=== PATIENT | female | born 2000 | race Two or more races ===

== ENCOUNTER 2023-12-31 20:16 | Outpatient (CLI) | payer OTHER ==
[2023-12-31 21:07] LABS: Appearance,Urine Cloudy (Clear); Bilirubin,Urine Negative (Negative); Blood,Urine Trace (Negative); Color,Urine Yellow; Glucose,Urine (UA) Negative (Negative); Ketones,Urine Negative (Negative); Leukocyte Esterase,Urine Negative (Negative); Mucus,Urine Many /hpf; Nitrite,Urine Negative (Negative); PH, Urine 6.5 (5.0-8.0); Protein,Urine Trace (Negative); RBC,Urine 3 /hpf (0-5); Specific Gravity,Urine 1.027 (1.001-1.035); Squamous Epithelial Cell,Urine 13 /hpf (0-4); Urobilinogen,Urine <2.0 mg/dL (<2.0); WBC,Urine 1 /hpf (0-5)
[2023-12-31 21:27] VITALS: BP 112/59; PULSE 102; RESP 16; TEMP 97
--- NOTE | 2024-01-02 02:34 | P.MSEPDOC ---
Presenting Problems - Arrival Data Date of Arrival on Unit: 12/31/23 Time of Arrival on Unit: 20:16 Mode of Transport: Ambulatory - Complaint OB-Reason for Admission/Chief Complaint: Pain Comment: pt. present to triage to to sharp ABD pain to lower ABD that has been constant since 3pm today. pt. states she has been drinking lots of fluid but with further questioning pt. only had 2 bottle of water today, pt. states she dose have urinary frequency for about a month now, pt. denies bleeding or leaking of fluid, urine sent. ABD soft to palpation, sensitive to palpation to lower pelvic area and right lower pelvic area Medical History - Information : 1 Para: 0 Term: 0 : 0 Abortions: Spontaneous or Elective: 0 Number of Living Children: 0 - Gestational Age Gestational Age by PETER (wks/days): 27 Weeks and 1 Days Review of Systems - Review of Systems Constitutional: No problems Breast: No problems ENT: No problems Cardiovascular: No problems Respiratory: No problems Gastrointestinal: No problems Genitourinary: No problems Musculoskeletal: No problems Neurological: No problems Skin: No problems Vital Signs - Temperature Temperature: 97.0 F Temperature Source: Temporal Artery Scan - Pulse Pulse Oximetery Pulse Rate: 102 Pulse Assessment Method: Automatic Cuff - Respirations Respiratory Rate: 16 Oxygen Delivery Method: Room Air O2 Sat by Pulse Oximetry: 97 - Blood Pressure Right Arm Blood Pressure: 112/59 Blood Pressure Mean: 76 Blood Pressure Source: Automatic Cuff Medical Screen Scoring - Uterine Contractions Resting: Soft to palpation - Assessment - Baby A Baseline FHR: 130 Heart Rate - NICHD Category: Category I (Normal) Physician Notification - Physician Notified Physician Notified Date: 12/31/23 Physician Notified Time: 21:10 Physician: Eugene Gabriel New Order Received: Yes - Notification Comment Comment: urinalysis reviewed, and ABD pain with palpation to lower pelvic/ligiment area, and right lower ABD. orders to disarge pt. home and follow up with her OB. Maternal Triage Index - Maternal Triage Index Presenting for scheduled procedure w/no complaint: No - Stat/Priority 1 Stat Priority 1: No - Urgent/Priority 2 Urgent Priority 2: Yes Provider Notified: Eugene Gabriel Provider Notified Time: 21:10 Criteria Met for Priority 2: 27 03/14 Disposition - Disposition OB Disposition: Discharge to home Discharge Date: 12/31/23 Discharge Time: 21:25 I agree with the RN Medical Screening Exam: Yes Physician's MSE Comment: I have neither seen nor examined the patient. Case reviewed; plan agreed upon as documented in EMR&OBIX.: Yes Diagnosis: RELATED CONDITIONS, UNSPECIFIED, SECOND TRIMESTER
== END 2023-12-31 21:25 | disposition home or self-care (01) ==
LOC: FBPOP 20:16
PROVIDERS: ATTEND Obstetrics & Gynecology
DX: O26.893 Other specified pregnancy related conditions, third trimester (principal); R10.30 Lower abdominal pain, unspecified; Z3A.27 27 weeks gestation of pregnancy
CPT/HCPCS: 81001; G0463; 99213